=== PATIENT | male | born 1985 | race Caucasian/White ===

== ENCOUNTER 2016-03-06 21:11 | Inpatient (IN) | payer OTHER ==
[2016-03-06 21:48] LABS: BASOPHIL 0.2 % (0-2.0); EOSINOPHIL 0.3 % (0-4.5); MCH 28.7 pg (25.7-33.7); MCHC 33.2 g/dl (32.0-35.9); MEAN CELL VOLUME 86.3 fl (80-96); MEAN PLT VOLUME 8.9 fl (7.5-11.1); PLATELET COUNT 201 K/MM3 (134-434); RDW 14.4 % (11.9-15.9); WHITE BLOOD COUNT 7.1 K/mm3 (4.0-10.0)
[2016-03-06 22:17] LABS: ACTIVATED PTT 31.1 SECONDS (26.9-34.4); INR 1.18 (0.82-1.09)
[2016-03-06 22:18] LABS: ALCOHOL < 5.0 mg/dl (0-5)
[2016-03-06 22:24] LABS: ALBUMIN 4.7 g/dl (3.4-5.0); ANION GAP 7 (8-16); BILIRUBIN,TOTAL 2.1 mg/dL (0.2-1.0); CALCIUM 8.9 mg/dL (8.5-10.1); CO2 26 mmol/L (21-32); CREATININE 0.8 mg/dL (0.7-1.3); GLUCOSE,RANDOM 101 mg/dL (74-106); SGOT/AST 46 U/L (15-37); SGPT/ALT 68 U/L (12-78); TOT PROT 7.9 g/dl (6.4-8.2)
[2016-03-06 22:26] LABS: ALK PHOS 67 U/L (45-117); TROPONIN I < 0.02 ng/ml (0.00-0.05)
--- NOTE | 2016-03-06 22:37 | PDOC ---
History of Present Illness - General History Source: EMS, Family Exam Limitations: No Limitations - History of Present Illness Initial Comments: 03/06/16 22:45 The patient is a 30 year old male brought via EMS and presenting with his sister , with a significant past medical history of cardiomyopathy, who presents to the emergency department with altered mental status onset today. Arrived at ED at 9:06pm. The sister denies any drugs, alcohol or cigarette use. She denies any recent stress of history of altered mental status. She denies any history of seizures or asthma. On presentation the patient awake but unresponsive to physical or verbal stimuli. At 9:09pm the patient's vitals are as follows; 108/86 BP, 120 BPM, 100% on room air and 19 respiratory rate. Family history: CAD Allergies: None Past surgical history: None reported Social history: No alcohol, tobacco or drug use reported <Jamal Zapata - Last Filed: 03/07/16 01:31> - General History Source: EMS, Family Exam Limitations: No Limitations <Rey Lovelace - Last Filed: 03/11/16 07:49> - General Chief Complaint: Overdose Stated Complaint: UNRESPONSIVE Time Seen by Provider: 03/06/16 21:14 Past History <Jamal Zapata - Last Filed: 03/07/16 01:31> - Past Medical History Anemia: No Asthma: No Cancer: No Cardiac Disorders: Yes (CARDIOMYOPATHY) CVA: No COPD: No CHF: No Dementia: No Diabetes: No GI Disorders: No Disorders: No HTN: No Hypercholesterolemia: No Liver Disease: No Seizures: No Thyroid Disease: No - Surgical History Abdominal Surgery: No Appendectomy: No Cardiac Surgery: No Cholecystectomy: No Lung Surgery: No Neurologic Surgery: No Orthopedic Surgery: No - Psycho/Social/Smoking Cessation Hx Suicidal Ideation: No Smoking History: Never smoked Hx Alcohol Use: No Drug/Substance Use Hx: No Hx Substance Use Treatment: No <Rey Lovelace - Last Filed: 03/11/16 07:49> - Past Medical History Allergies/Adverse Reactions: Allergies Allergy/AdvReac Type Severity Reaction Status Date / Time ondansetron HCl [From Zofran] AdvReac Verified 11/21/13 00:17 Review of Systems - Review of Systems Able to Perform ROS?: Yes Comments:: 03/06/16 22:45 Unable to obtain ROS due to unresponsiveness. <Jamal Zapata - Last Filed: 03/07/16 01:31> *Physical Exam - Physical Exam Comments: 03/06/16 22:47 GENERAL: Awake, alert, and fully oriented, in no acute distress HEAD: No signs of trauma, normocephalic, atraumatic EYES: PERRLA, EOMI, sclera anicteric, conjunctiva clear ENT: Auricles normal inspection, hearing grossly normal, nares patent, oropharynx clear without exudates. Moist mucosa NECK: Normal ROM, supple, no lymphadenopathy, JVD, or masses LUNGS: No distress, speaks full sentences, clear to auscultation bilaterally HEART: Regular rate and rhythm, normal S1 and S2, no murmurs, rubs or gallops, peripheral pulses normal and equal bilaterally. ABDOMEN: Soft, nontender, normoactive bowel sounds. No guarding, no rebound. No masses EXTREMITIES: Normal inspection, Normal range of motion, no edema. No clubbing or cyanosis. NEUROLOGICAL: Cranial nerves II through XII grossly intact. Normal speech, normal gait, no focal sensorimotor deficits SKIN: Warm, Dry, normal turgor, no rashes or lesions noted. <Jamal Zapata - Last Filed: 03/07/16 01:31> Heart Score/ECG Review #1 ECG reviewed & interpreted by me at: 21:20 03/06/16 22:37 NSR 111, no std/eloisa, normal axis, normal intervals, QTC 454 msec <Rey Lovelace - Last Filed: 03/11/16 07:49> ED Treatment Course - LABORATORY CBC & Chemistry Diagram: 03/06/16 21:29 03/06/16 21:29 - ADDITIONAL ORDERS Additional order review: Laboratory Results 03/06/16 03/06/16 03/06/16 21:29 21:29 21:29 INR PTT (Actin FS) Sodium 145 Potassium 4.7 Chloride 112 H Carbon Dioxide 26 Anion Gap 7 L BUN 19 H D Creatinine 0.8 D Creat Clearance w eGFR > 60 Random Glucose 101 D Lactic Acid 2.039 H* Calcium 8.9 Total Bilirubin 2.1 H AST 46 H ALT 68 Alkaline Phosphatase 67 Creatine Kinase 108 Troponin I < 0.02 Total Protein 7.9 Albumin 4.7 Lipase 129 Salicylates < 4.0 Acetaminophen < 2.0 L Alcohol, Quantitative < 5.0 03/06/16 21:29 INR 1.18 H PTT (Actin FS) 31.1 Sodium Potassium Chloride Carbon Dioxide Anion Gap BUN Creatinine Creat Clearance w eGFR Random Glucose Lactic Acid Calcium Total Bilirubin AST ALT Alkaline Phosphatase Creatine Kinase Troponin I Total Protein Albumin Lipase Salicylates Acetaminophen Alcohol, Quantitative 03/06/16 21:29 RBC 5.37 D MCV 86.3 MCHC 33.2 RDW 14.4 MPV 8.9 Neutrophils % 86.0 H Lymphocytes % 8.0 D Monocytes % 5.5 D Eosinophils % 0.3 Basophils % 0.2 - RADIOLOGY Radiograph Interpretation: 03/06/16 23:[address] Reviewed by: Dr. Link Bennett Impression: There is equivocal minimal to mild bilaterally symmetric hypodensity within the mid and posterior thirds of the temporal lobes which is probably artifactual in nature and less likely secondary to acute ischemia. <Jamal Zapata - Last Filed: 03/07/16 01:31> - LABORATORY CBC & Chemistry Diagram: 03/06/16 21:29 03/06/16 21:29 - ADDITIONAL ORDERS Additional order review: Laboratory Results 03/06/16 03/06/16 03/06/16 21:29 21:29 21:29 INR 1.18 H PTT (Actin FS) 31.1 Sodium 145 Potassium 4.7 Chloride 112 H Carbon Dioxide 26 Anion Gap 7 L BUN 19 H D Creatinine 0.8 D Creat Clearance w eGFR > 60 Random Glucose 101 D Calcium 8.9 Total Bilirubin 2.1 H AST 46 H ALT 68 Alkaline Phosphatase 67 Creatine Kinase 108 Troponin I < 0.02 Total Protein 7.9 Albumin 4.7 Lipase 129 Alcohol, Quantitative < 5.0 03/06/16 21:29 RBC 5.37 D MCV 86.3 MCHC 33.2 RDW 14.4 MPV 8.9 Neutrophils % 86.0 H Lymphocytes % 8.0 D Monocytes % 5.5 D Eosinophils % 0.3 Basophils % 0.2 - RADIOLOGY Radiology Studies Ordered: Category Date Time Status HEAD CT WITHOUT CONTRAST [CT] Stat CT Scan 03/06/16 21:14 Taken CHEST X-RAY PORTABLE* [RAD] Stat Radiology 03/06/16 22:31 Ordered <Rey Lovelace - Last Filed: 03/11/16 07:49> Medical Decision Making - Medical Decision Making 03/07/16 01:31 Dr. Stanley was called regarding the patient at 12:20am. Dr. Sruthi Marmolejo covering. Dr. Marmolejo was called regarding the patient at 12:59am Dr. Marmolejo was consulted regarding the patient at 1:30am [phone] <Jamal Zapata - Last Filed: 03/07/16 01:31> - Medical Decision Making 03/06/16 22:31 A portion of this note was documented by scribe services under my direction. I have reviewed the details of the note, within reason, and agree with the documentation with the following case summary and management plan written by me. Patient treated in the ED. Nursing notes are reviewed and incorporated into the medical decision-making. Vital signs reviewed. Peripheral IV access obtained by the nurse, laboratory studies are drawn and sent, reviewed and interpreted by myself. 30-year-old male with history of cardiomyopathy currently on digoxin presents to the emergency department with reported unconsciousness. The patient family reports that he started complaining about some nausea and vomiting and diarrhea and some abdominal cramping and subsequently went unconscious and the EMS was activated. Upon arrival to the ED, the patient had normal vital signs and was protecting his airway and breathing without labor. The presentation seemed unusual given that the patient seemed to have inconsistent presentations for his unconsciousness. It appears that he would look away when I tended open his eyes. He would avoid movements where there was pain inducing. We had then attempted to place a Louise catheter with the patient immediately stopped us and told us that he would urinate on his own and had no complaints. When asked about what had occurred, the patient reports that his nausea, vomiting, diarrhea and is stated that he just woke up in the emergency department. He has no complaint at this time. I suspect that this is all likely psychogenic in origin. We'll however obtain a CAT scan the head, labs, EKG, chest x-ray, urinalysis, tox screen. We'll observe the patient in the emergency department. If workup is unremarkable, we' ll discharge patient home with PMD follow-up. 03/07/16 01:44 CBC, BMP 03/06/16 21:29 03/06/16 21:29 CMP Sodium 145 mmol/L (136-145) 03/06/16 21:29 Potassium 4.7 mmol/L (3.5-5.1) 03/06/16: Chloride 112 mmol/L (98-107) H 03/06/16 21: Carbon Dioxide 26 mmol/L (21-32) 03/06/16 21: Anion Gap 7 (8-16) L 03/06/16 21: BUN 19 mg/dL (7-18) H D 03/06/16: Creatinine 0.8 mg/dL (0.7-1.3) D 03/06/16 21: Creat Clearance w eGFR > 60 (>60) 03/06/16: Random Glucose 101 mg/dL (74-106) D 03/06/16: Lactic Acid 2.039 mmol/L (0.4-2.0) H* 03/06/16: Calcium 8.9 mg/dL (8.5-10.1) 03/06/16: Total Bilirubin 2.1 mg/dL (0.2-1.0) H 03/06/16 21: AST 46 U/L (15-37) H 03/06/16 21: ALT 68 U/L (12-78) 03/06/16: Alkaline Phosphatase 67 U/L (45-117) 03/06/16 21: Creatine Kinase 108 IU/L (39-308) 03/06/16: Troponin I < 0.02 ng/ml (0.00-0.05) 03/06/16: Total Protein 7.9 g/dl (6.4-8.2) 03/06/16 21: Albumin 4.7 g/dl (3.4-5.0) 03/06/16: Lipase 129 U/L (73-393) 03/06/16: Salicylate, Acetaminophen, and alcohol negative. Urine tox pending. Patient continues with vomiting. To the CAT scan the head demonstrates findings that could be artifact but could not exclusive rule out acute infarct. Given that the patient has history of cardiac disease, we'll need to potentially entertain this idea. However, the patient demonstrates no acute neurological deficits. He demonstrates cranial nerves 2 to 12 intact with full strength in the upper and lower extremities and normal sensation throughout. He has no cerebellar signs. Again, I suspect that the CAT scan findings may potentially be artifact given the circumstances that he presented. But given that he has these "unconscious" episode and this CT finding, will admit the patient for telemetry observation. Will place a consultation in for Dr. Ku and hold off on aspirin at this time. Case discussed with Dr. Marmolejo who accepts the patient to telemetry observation. Case discussed in detail with admitting physician including history, physical exam and ancillary studies. Admitting physician has assumed care for the patient, will follow all pending diagnostics and will complete the evaluation and treatment. <Rey Lovelace - Last Filed: 03/11/16 07:49> *DC/Admit/Observation/Transfer - Attestations Scribe Attestion: 03/06/16 22:47 Documentation prepared by Jamal Zapata, acting as medical billing service for Rey Lovelace MD. <Jamal Zapata - Last Filed: 03/07/16 01:31> - Discharge Dispostion Admit: Yes <Rey Lovelace - Last Filed: 03/11/16 07:49> Diagnosis at time of Disposition: Abnormal head CT - Referrals
[2016-03-06 22:40] LABS: SALICYLATE < 4.0 mg/dl (0.0-30.0)
[2016-03-06] MEDS ORDERED: METOCLOPRAMIDE HCL INJECTION 10 MG/2 ML VIAL IVPB ONE (23:57)
[2016-03-07] MEDS ORDERED: SODIUM CHLORIDE 500 ML IV STA (00:05)
[2016-03-07] MEDS ORDERED: METOCLOPRAMIDE HCL INJECTION 10 MG/2 ML VIAL ONE (00:41)
[2016-03-07 06:48] VITALS: BMI 17.6
[2016-03-07] MEDS: ASPIRIN 81 MG CHEWABLE TABLETS PO SCH (09:39)
[2016-03-07] MEDS: DIGOXIN 0.25 MG TABLET (FP) PO SCH (09:39)
--- NOTE | 2016-03-07 10:04 | HP ---
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 His mother witnessed it. denies chest pain, shortness of breath or palpitations Mother had diarrhea for 2 days prior to the patient being sick. He denies eating food from outside. History Source: Patient Limitations to Obtaining History: No Limitations - Past Medical History DRIER FEEDER: Yes: Other (myotonic dystrophy) Cardiovascular: Yes: Other (? history of cardiac disease) Rheumatology: Yes: Other (myotonic dystrophy) - Smoking History Smoking history: Never smoked Have you smoked in the past 12 months: No - Alcohol/Substance Use Hx Alcohol Use: No Home Medications - Allergies Allergies/Adverse Reactions: Allergies Allergy/AdvReac Type Severity Reaction Status Date / Time ondansetron HCl [From Zofran] AdvReac Verified 11/21/13 00:17 - Home Medications Home Medications: Ambulatory Orders Enalapril Maleate 0 mg PO DAILY 11/20/13 Review of Systems - Review of Systems Constitutional: denies: Chills, Fever, Lethargy, Loss of Appetite Cardiovascular: denies: Chest Pain, Palpitations Respiratory: denies: Cough Physical Examination Vital Signs: Vital Signs Temperature 98 F 03/07/16 08:00 Pulse Rate 84 03/07/16 09:39 Respiratory Rate 20 03/07/16 08:00 Blood Pressure 95/57 03/07/16 08:00 O2 Sat by Pulse Oximetry (%) 98 03/07/16 06:00 Constitutional: Yes: No Distress, Calm HENT: Yes: Other (oral mucosae dry) Cardiovascular: Yes: Regular Rate and Rhythm Respiratory: Yes: CTA Bilaterally Gastrointestinal: Yes: Normal Bowel Sounds, Soft. No: Distention, Tenderness Edema: No Psychiatric: Yes: Alert, Oriented Labs: Laboratory Results - last 24 hr 03/06/16 03/06/16 03/06/16 21:29 21:29 21:29 WBC 7.1 D RBC 5.37 D Hgb 15.4 D Hct 46.4 D MCV 86.3 MCHC 33.2 RDW 14.4 Plt Count 201 D MPV 8.9 Neutrophils % 86.0 H Lymphocytes % 8.0 D Monocytes % 5.5 D Eosinophils % 0.3 Basophils % 0.2 INR 1.18 H PTT (Actin FS) 31.1 Sodium 145 Potassium 4.7 Chloride 112 H Carbon Dioxide 26 Anion Gap 7 L BUN 19 H D Creatinine 0.8 D Creat Clearance w eGFR > 60 Random Glucose 101 D Lactic Acid Calcium 8.9 Total Bilirubin 2.1 H AST 46 H ALT 68 Alkaline Phosphatase 67 Ammonia Creatine Kinase 108 Troponin I < 0.02 Total Protein 7.9 Albumin 4.7 Lipase 129 Digoxin Salicylates Acetaminophen Alcohol, Quantitative 03/06/16 03/06/16 03/07/16 21:29 21:29 02:02 WBC RBC Hgb Hct MCV MCHC RDW Plt Count MPV Neutrophils % Lymphocytes % Monocytes % Eosinophils % Basophils % INR PTT (Actin FS) Sodium Potassium Chloride Carbon Dioxide Anion Gap BUN Creatinine Creat Clearance w eGFR Random Glucose Lactic Acid 2.039 H* Calcium Total Bilirubin AST ALT Alkaline Phosphatase Ammonia 20.78 Creatine Kinase Troponin I Total Protein Albumin Lipase Digoxin Salicylates < 4.0 Acetaminophen < 2.0 L Alcohol, Quantitative < 5.0 03/07/16 03/07/16 02:02 10:30 WBC RBC Hgb Hct MCV MCHC RDW Plt Count MPV Neutrophils % Lymphocytes % Monocytes % Eosinophils % Basophils % INR PTT (Actin FS) Sodium Potassium Chloride Carbon Dioxide Anion Gap BUN Creatinine Creat Clearance w eGFR Random Glucose Lactic Acid 1.018 Calcium Total Bilirubin AST ALT Alkaline Phosphatase Ammonia Creatine Kinase Troponin I Total Protein Albumin Lipase Digoxin 0.0606 L Salicylates Acetaminophen Alcohol, Quantitative Imaging - Results Chest X-ray: Image Reviewed (Clear) Cat Scan: Report Reviewed EKG: Image Reviewed (NSR) Problem List - Problems (1) Abnormal head CT Code(s): R93.0 - ABNORMAL FINDINGS ON DX IMAGING OF SKULL AND HEAD, NEC (2) Syncope and collapse Code(s): R55 - SYNCOPE AND COLLAPSE (3) Diarrhea Code(s): R19.7 - DIARRHEA, UNSPECIFIED (4) Gastroenteritis Code(s): K52.9 - NONINFECTIVE GASTROENTERITIS AND COLITIS, UNSPECIFIED (5) Dehydration Code(s): E86.0 - DEHYDRATION Assessment/Plan plan Spoke with patient's primary care physician--patient only was prescribed vitamin D Patient is not on digoxin I will check echocardiogram as well as abdominal sonogram as total bilirubin is elevated Most likely the patient was dehydrated due to viral syndrome and had syncopized IV fluids neurology evaluation with regards to abnormal CT had Spoke with the hearing screen coordinator, discontinue digoxin Physical therapy evaluation DVT prophylaxisLovenox
--- NOTE | 2016-03-07 11:35 | CON.CARD ---
Consult Consult Specialty:: Cardiology Referred by:: Dr. Leiva Reason for Consultation:: Syncope, reported history of cardiomyopathy - History of Present Illness Chief Complaint: Nausea, vomiting, diarrhea, syncope History of Present Illness: 30 year old man with a history of myotonic dystrophy, unclear cardiac history ( reported possible cardiomyopathy but unknown details, on digoxin for unknown reason) presented to ER with family for an episode of syncope that occurred after nausea, vomiting, diarrhea. Pt. states that he had had episodes of nausea , vomiting, and diarrhea, he states that he was sitting on the couch when he told his mother that he needed to go to the hospital for these symptoms, he remembers becoming dizzy with the room spinning and then fell to the floor. The next thing he was aware of he was in the hospital. ER documentation reviewed, pt had a non-focal neurologic exam with stable vital signs, sinus tachycardia, and he regained consciousness while in the ER. He was seen and examined today in nad. currently awake, alert, oriented. he states he is feeling better. he denies having any chest pain, sob, or palpitations. - History Source History Provided By: Patient, Medical Record Limitations to Obtaining History: No Limitations - Past Medical History Cardio/Vascular: Yes: Other (reported cardiomyopathy but unknown details) Musculoskeletal: Yes: Other (myotonic dystrophy) Rheumatology: Yes: Other (myotonic dystrophy) - Alcohol/Substance Use Hx Alcohol Use: No - Smoking History Smoking history: Never smoked Have you smoked in the past 12 months: No - Social History Usual Living Arrangement: With Parent ADL: Family Assistance History of Recent Travel: No Home Medications - Allergies Allergies/Adverse Reactions: Allergies Allergy/AdvReac Type Severity Reaction Status Date / Time ondansetron HCl [From Zofran] AdvReac Verified 11/21/13 00:17 - Home Medications Home Medications: Ambulatory Orders Enalapril Maleate 0 mg PO DAILY 11/20/13 Family Disease History - Family Disease History Family Disease History: Heart Disease: Mother Review of Systems - Review of Systems Constitutional: reports: Weakness. denies: No Symptoms, Chills, Diaphoresis, Fever, Lethargy, Loss of Appetite, Malaise, Night Sweats, Unintentional Wgt. Loss, Other Eyes: denies: No Symptoms, Blind Spots, Blurred Vision, Double Vision, Eye Pain , Floaters, Photophobia, Recent Change in Vision, Other HENT: denies: No Symptoms, Difficult Swallowing, Ear Discharge, Ear Pain, Epistaxis, Gingival Bleeding, Hearing Loss, Mouth Swelling, Nasal Congestion, Ocular Prosthesis, Throat Pain, Toothache, Ringing in Ears, Other Neck: denies: No Symptoms, Decreased ROM, Lumps, Pain on Movement, Stiffness, Swollen Glands, Tenderness, Other Cardiovascular: denies: No Symptoms, Chest Pain, Edema, Palpitations, Shortness of Breath, Other Respiratory: denies: No Symptoms, Cough, Exercise Intolerance, Hemoptysis, Orthopnea, PND, Snoring, SOB, SOB on Exertion, Wheezing, Other Gastrointestinal: reports: Diarrhea, Nausea, Vomiting. denies: No Symptoms, Abdominal Pain, Bloating, Constipation, Dysphagia, Indigestion, Melena, Rectal Bleeding, Vomiting Blood, Other Genitourinary: denies: No Symptoms, Burning, Discharge, Dysuria, Flank Pain, Frequency, Hematuria, Incontinence, Lesions, Menses, Pain, Testicular Mass, Testicular Pain, Testicular Swelling, Urgency, Vaginal Bleeding, Other Breasts: denies: No Symptoms Reported, See HPI, Breast Implants, Discharge from Nipple, Lumps, Pain, Skin Changes, Other Musculoskeletal: reports: Decreased ROM, Muscle Weakness. denies: No Symptoms, Back Pain, Crepitus, Extremity Pain, Joint Pain, Joint Swelling, Muscle Pain, Muscle Cramps, Other Integumentary: denies: No Symptoms, Blister, Bruising, Change in Color, Eczema, Erythema, Incision, Lesions, Lump, Pallor, Pruritis, Rash, Wound, Other Neurological: reports: Change in LOC, Dizziness, Pre-Existing Deficit, Syncope, Weakness. denies: No Symptoms, Change in Speech, Confusion, Headache, Incoordination, Numbness, Parasthesia, Seizure, Tremors, Unsteady Gait, Other Endocrine: denies: No Symptoms, Excessive Sweating, Flushing, Increased Hunger, Increased Thirst, Intolerance to Cold, Intolerance to Heat, Unexplained Weight Gain, Unexplained Weight Loss, Other Hematology/Lymphatic: denies: No Symptoms, Easily Bruised, Excessive Bleeding, Swollen Glands, Other Psychiatric: denies: No Symptoms, Altered Sleep Pattern, Anxiety, Depression, Hallucinations, Panic, Paranoia, Suicidal, Other Vital Signs: Vital Signs Temperature 98 F 03/07/16 08:00 Pulse Rate 84 03/07/16 09:39 Respiratory Rate 20 03/07/16 08:00 Blood Pressure 95/57 03/07/16 08:00 O2 Sat by Pulse Oximetry (%) 96 03/07/16 08:00 Constitutional: Yes: No Distress, Calm, Thin Eyes: Yes: Conjunctiva Clear, EOM Intact, PERRL HENT: Yes: Atraumatic, Normocephalic Neck: Yes: Supple, Trachea Midline Respiratory: Yes: Regular, CTA Bilaterally. No: Rales, Rhonchi, Wheezes Gastrointestinal: Yes: WNL, Normal Bowel Sounds, Soft. No: Distention, Tenderness Renal/: Yes: WNL Cardiovascular: Yes: Regular Rate and Rhythm. No: Bradycardia, Tachycardia, Pulse Irregular, Gallop, Rub, Varicosities JVD: No Carotid Bruit: No PMI: Non-Displaced Heart Sounds: Yes: S1, S2. No: Split S2, S3, S4, Clicks, Gallop, Rub, Bruit Murmur: No: Systolic Murmur, Diastolic Murmur Musculoskeletal: Yes: Joint Stiffness, Muscle Weakness Extremities: Yes: WNL Edema: No Peripheral Pulses WNL: Yes Peripheral Pulses: 2+ Left Doralis Pedis, 2+ Right Dorsalis Pedis Integumentary: Yes: WNL Neurological: Yes: Alert, Oriented Psychiatric: Yes: Alert, Oriented - Other Data Labs, Other Data: INR, PTT INR 1.18 (0.82-1.09) H 03/06/16 21:29 ekg-sinus tach 111bpm, no sig ST abnl Echo: Pending, Report Reviewed (recent outpatient echo normal as per PMD) Ejection Fraction %: LVEF > or = 40 % Imaging - Results Chest X-ray: Report Reviewed, Image Reviewed EKG: Report Reviewed, Image Reviewed Other: Report Reviewed, Image Reviewed (tele-nsr, no arrhythmias recorded) Problem List - Problems (1) Cardiomyopathy Code(s): I42.9 - CARDIOMYOPATHY, UNSPECIFIED (2) Diarrhea Code(s): R19.7 - DIARRHEA, UNSPECIFIED (3) Gastroenteritis Code(s): K52.9 - NONINFECTIVE GASTROENTERITIS AND COLITIS, UNSPECIFIED (4) Vomiting Code(s): R11.10 - VOMITING, UNSPECIFIED (5) Syncope and collapse Code(s): R55 - SYNCOPE AND COLLAPSE Assessment/Plan 30 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 Syncope-unclear etiology, likely vasovagal secondary to GI illness and dehydration -labs and sinus tach c/w intravascular depletion -hydrate as needed -recent outpatient echo reportedly normal -unclear details on pts history of a cardiomyopathy, pt states that his heart is normal strength but was weak as a child -repeat echo here to re-assess -need to clarify why pt is on digoxin, dig level today .06, not dig toxic -ekg showed only sinus tach and tele has shown nsr, no arrhythmias noted -on discharge would recc additional extended event monitor to further assess for arrhythmia if no source of syncope is discovered during admission -neurology evaluation pending -will review echo and follow
--- NOTE | 2016-03-07 12:04 | CON.NEURO ---
Consult Consult Specialty:: Farzana Referred by:: Mik Reason for Consultation:: Ab CT - History of Present Illness History of Present Illness: 30 years old woman with PMH Cardiomyopathy Patient was admitted with CP Patient had some dizziness and required CT HEAD No ataxi no CP - History Source History Provided By: Significant Other, Medical Record Limitations to Obtaining History: No Limitations - Past Medical History Cardio/Vascular: Yes: Other (cardiomyopathy) Rheumatology: Yes: Other (myotonic dystrophy) - Alcohol/Substance Use Hx Alcohol Use: No - Smoking History Smoking history: Never smoked Have you smoked in the past 12 months: No Home Medications - Allergies Allergies/Adverse Reactions: Allergies Allergy/AdvReac Type Severity Reaction Status Date / Time ondansetron HCl [From Zofran] AdvReac Verified 11/21/13 00:17 - Home Medications Home Medications: Ambulatory Orders Enalapril Maleate 0 mg PO DAILY 11/20/13 Family Disease History - Family Disease History Family History: Unable to Obtain Review of Systems - Review of Systems Constitutional: reports: No Symptoms Eyes: reports: No Symptoms Physical Exam-Neuro Vital Signs: Vital Signs Temperature 98 F 03/07/16 08:00 Pulse Rate 84 03/07/16 09:39 Respiratory Rate 20 03/07/16 08:00 Blood Pressure 95/57 03/07/16 08:00 O2 Sat by Pulse Oximetry (%) 96 03/07/16 08:00 Constitutional: Yes: Well Nourished Neck: Yes: WNL Labs: INR, PTT INR 1.18 (0.82-1.09) H 03/06/16 21:29 - Neuro Exam Level Of Consciousness: Yes: Oriented to Person, Oriented to Place, Oriented to Time Eyes: Yes: PERRLA Speech: WNL Dominant Hand: Right Cranial Nerves II-XII Intact: Yes Gag: Present DTR's: 1+ Left Bicep, 1+ Right Bicep, 1+ Left Brachioradialis, 1+ Right Brachioradialis Response to light touch: Normal Response to pain prick: Normal Response to temperature: Normal Motor Strength: 3/5: Left Arm, Right Arm, Left Leg, Right Leg Gait: Deferred Imaging - Results Cat Scan: Image Reviewed Problem List - Problems (1) Abnormal head CT Code(s): R93.0 - ABNORMAL FINDINGS ON DX IMAGING OF SKULL AND HEAD, NEC Assessment/Plan Blood work mRI brain with no Edd Work up based on MR results Many thanks for [facility] consult
[2016-03-07] MEDS: D5-1/2NS+10 MEQ KCL - 1,000 ML IV SCH (14:16)
--- NOTE | 2016-03-07 15:38 | EKG ---
Test Reason : Blood Pressure : / mmHG Vent. Rate : 111 BPM Atrial Rate : 111 BPM P-R Int : 170 ms QRS Dur : 092 ms QT Int : 334 ms P-R-T Axes : 076 083 056 degrees QTc Int : 454 ms POOR DATA QUALITY, INTERPRETATION MAY BE ADVERSELY AFFECTED SINUS TACHYCARDIA OTHERWISE NORMAL ECG WHEN COMPARED WITH ECG OF 20-NOV-2013 13:29, ST NO LONGER ELEVATED IN INFERIOR LEADS Confirmed by MOISE DILL, AYM ([id number]) on 03/07/2016 3:38:25 PM Referred By: Confirmed By:AMY PHIPPS MD
[2016-03-08 08:28] LABS: URINE APPEARANCE CLEAR; URINE BILIRUBIN NEGATIVE (NEGATIVE); URINE BLOOD NEGATIVE (NEGATIVE); URINE COLOR DKYELLOW; URINE GLUCOSE (UA) NEGATIVE (NEGATIVE); URINE KETONE NEGATIVE (NEGATIVE); URINE LEUK ESTERASE NEGATIVE (NEGATIVE); URINE NITRITE NEGATIVE (NEGATIVE); URINE PROTEIN NEGATIVE (NEGATIVE); URINE UROBILINOGEN 2.0 E.U/dl E.U./dl (0.2-1.0)
[2016-03-08 09:06] LABS: URINE MARIJUANA THC NEGATIVE ng/ml (CUTOFF=50)
--- NOTE | 2016-03-08 09:12 | PN ---
Progress Note, Physician Chief Complaint: feels well History of Present Illness: TELE: NSR Echo WNL - Current Medication List Current Medications: Active Medications Aspirin (Asa -) 81 mg PO DAILY [facility] Last Admin: 03/07/16 09:39 Dose: 81 mg Digoxin (Lanoxin -) 0.25 mg PO DAILY [facility] Last Admin: 03/07/16 09:39 Dose: 0.25 mg Enoxaparin Sodium (Lovenox -) 40 mg SQ DAILY [facility] Potassium Chloride/Dextrose/Sod Cl (D5-1/2ns+10 Meq Kcl -) 1,000 mls @ 60 mls/ hr IV ASDIR [facility] Last Admin: 03/07/16 14:16 Dose: 60 mls/hr - Objective Vital Signs: Vital Signs Temperature 98.2 F 03/08/16 08:00 Pulse Rate 66 03/08/16 08:00 Respiratory Rate 14 03/08/16 08:00 Blood Pressure 92/50 03/08/16 08:00 O2 Sat by Pulse Oximetry (%) 98 03/08/16 06:00 Constitutional: Yes: No Distress Cardiovascular: Yes: Regular Rate and Rhythm Respiratory: Yes: CTA Bilaterally Gastrointestinal: Yes: Soft Edema: No Neurological: Yes: Alert Labs: INR, PTT INR 1.18 (0.82-1.09) H 03/06/16 21:29 - ....Imaging EKG: Image Reviewed Assessment/Plan Assessment/Plan 30 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 Syncope-unclear etiology, likely vasovagal secondary to GI illness and dehydration -Echo w/ normal LV functio -Tele NSR -Neuro work up in progress
[2016-03-08] MEDS: ENOXAPARIN NA (PORCINE) 40 MG/0.4 ML DISP.SYRIN SQ SCH (09:29)
[2016-03-08] MEDS: ASPIRIN 81 MG CHEWABLE TABLETS PO SCH (09:29)
[2016-03-08] MEDS: DIGOXIN 0.25 MG TABLET (FP) PO SCH (10:32)
--- NOTE | 2016-03-08 10:53 | DS ---
Physical Examination Vital Signs: Vital Signs Temperature 98.2 F 03/08/16 08:00 Pulse Rate 66 03/08/16 08:00 Respiratory Rate 14 03/08/16 08:00 Blood Pressure 92/50 03/08/16 08:00 O2 Sat by Pulse Oximetry (%) 98 03/08/16 06:00 <Jhonatan Marmolejo - Last Filed: 03/08/16 10:55> Vital Signs: Vital Signs Temperature 98.2 F 03/08/16 08:00 Pulse Rate 66 03/08/16 08:00 Respiratory Rate 14 03/08/16 08:00 Blood Pressure 92/50 03/08/16 08:00 O2 Sat by Pulse Oximetry (%) 98 03/08/16 06:00 Findings/Remarks: Feels well. No complaints. Constitutional: Yes: No Distress, Calm Eyes: Yes: Conjunctiva Clear HENT: Yes: WNL Neck: Yes: Supple Cardiovascular: Yes: Regular Rate and Rhythm Respiratory: Yes: CTA Bilaterally Gastrointestinal: Yes: Soft Edema: No Neurological: Yes: Alert Psychiatric: Yes: Alert <Diamond Montero - Last Filed: 03/08/16 10:59> Discharge Summary Reason For Visit: ABNORMAL HEAD CT Current Active Problems Abnormal head CT (Acute) Dehydration (Acute) Myotonic dystrophy (Acute) Syncope and collapse (Acute) <Jhonatan Marmolejo - Last Filed: 03/08/16 10:55> Current Active Problems Abnormal head CT (Acute) Dehydration (Acute) Myotonic dystrophy (Acute) Syncope and collapse (Acute) Hospital Course: Admitted for syncope. Most likely vasovagal. Workup negative. Echocardiogram was normal. MRI of the brain revealed no acute pathology except nasopharyngeal polyp and deviated nasal septum. Patient is medically stabled for discharge. Patient is advised not to take Digoxin. No need for Aspirin either. Will also hold blood pressure medications as pressure is on the low side. Patient to follow with his PMD next week. Patient also advised to see an ENT for nasopharyngeal polyp and deviated septum as outpatient. Patient will discuss with his PMD. Will discharge home today. Patient in agreement. Discussed with nursing staff also. Documentation prepared by Diamond Montero, acting as a medical record consultant for Jhonatan Marmolejo MD. <Diamond Montero - Last Filed: 03/08/16 10:59> - Instructions Referrals: Shantanu Stanley MD [Primary Care Provider] -
--- NOTE | 2016-03-08 12:53 | PN ---
Progress Note (short form) - Note Progress Note: Cardiology Addendum Echo report addendum noted. On personal review of study, there is an echo shadow which appears to be associated w/ the LA free wall which is probably artifactual. 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 In light of syncope presentation, a cardiac MRI or CEDRIC can be done to clarify the finding. CEDRIC can be done Friday if he remains inpatient.
[2016-03-08] MEDS: D5-1/2NS+10 MEQ KCL - 1,000 ML IV SCH (13:00)
--- NOTE | 2016-03-08 15:06 | PN ---
Progress Note, Physician History of Present Illness: events noted Chart revwied seen on tele Alert awke Mild dysarthia No hedache No New neuro events - Current Medication List Current Medications: Active Medications Enoxaparin Sodium (Lovenox -) 40 mg SQ DAILY [facility] Last Admin: 03/08/16 09:29 Dose: 40 mg Potassium Chloride/Dextrose/Sod Cl (D5-1/2ns+10 Meq Kcl -) 1,000 mls @ 60 mls/ hr IV ASDIR [facility] Last Admin: 03/07/16 14:16 Dose: 60 mls/hr - Objective Vital Signs: Vital Signs Temperature 98.2 F 03/08/16 08:00 Pulse Rate 66 03/08/16 08:00 Respiratory Rate 14 03/08/16 08:00 Blood Pressure 92/50 03/08/16 08:00 O2 Sat by Pulse Oximetry (%) 96 03/08/16 09:00 Constitutional: Yes: Well Nourished Eyes: Yes: WNL Neurological: Yes: Alert, Oriented, Babinski negative ...Motor Strength: WNL Labs: INR, PTT INR 1.18 (0.82-1.09) H 03/06/16 21:29 Problem List - Problems (1) Abnormal head CT Code(s): R93.0 - ABNORMAL FINDINGS ON DX IMAGING OF SKULL AND HEAD, NEC Assessment/Plan MRI of the brain with no evidence of acute pathology Neurological he can go home
[2016-03-09] MEDS: ENOXAPARIN NA (PORCINE) 40 MG/0.4 ML DISP.SYRIN SQ SCH (09:57)
--- NOTE | 2016-03-09 10:10 | PN ---
Progress Note (short form) - Note Progress Note: pt seen/ examined. no complains discharge was held yesterday per cardiology recommendation - Dr. Sifuentes texted me . Vital Signs Temp 98.2 F 03/09/16 06:00 Pulse 78 03/09/16 06:00 Resp 20 03/09/16 06:00 BP 115/58 03/09/16 06:00 Pulse Ox 96 03/08/16 21:00 Intake & Output 03/08/16 03/08/16 03/09/16 11:59 23:59 11:59 Intake Total 360 200 Balance 360 200 Intake: IV 360 D5-1/2Ns+10 Meq KCl - 1, 360 000 ml @ 60 mls/hr IV ASDIR [facility] Rx#:[id number] Oral 200 Other: Voiding Method Toilet Toilet Toilet # Unmeasured Voids Void 2 3 Active Medications Enoxaparin Sodium (Lovenox -) 40 mg SQ DAILY [facility] Last Admin: 03/09/16 09:57 Dose: 40 mg Potassium Chloride/Dextrose/Sod Cl (D5-1/2ns+10 Meq Kcl -) 1,000 mls @ 60 mls/ hr IV ASDIR [facility] Last Admin: 03/08/16 13:00 Dose: Not Given CBC, BMP 03/06/16 21:29 03/06/16 21:29 Physical Exam. Constitutional: Yes: No Distress, comfortable Eyes: Yes: Conjunctiva Clear HEENT: Yes: WNL Neck: Yes: Supple/ no jvd Cardiovascular: Yes: Regular Rate and Rhythm Respiratory: Yes: clear Gastrointestinal: Yes: Soft/ non tender Edema: No Neurological: Yes: Alert Psychiatric: Yes: Alert a/p stable Abnormal echo ? Discussed with Dr. Addison today. Scheduled for CEDRIC on Discussed with pt - He agrees with plan. Problem List - Problems (1) Cardiomyopathy Code(s): I42.9 - CARDIOMYOPATHY, UNSPECIFIED (2) Diarrhea Code(s): R19.7 - DIARRHEA, UNSPECIFIED (3) Gastroenteritis Code(s): K52.9 - NONINFECTIVE GASTROENTERITIS AND COLITIS, UNSPECIFIED (4) Vomiting Code(s): R11.10 - VOMITING, UNSPECIFIED (5) Syncope and collapse Code(s): R55 - SYNCOPE AND COLLAPSE
--- NOTE | 2016-03-09 11:14 | PN ---
Progress Note, Physician History of Present Illness: seen and examined today in [facility]. no overnight events. no new complaints. - Current Medication List Current Medications: Active Medications Enoxaparin Sodium (Lovenox -) 40 mg SQ DAILY [facility] Last Admin: 03/09/16 09:57 Dose: 40 mg Potassium Chloride/Dextrose/Sod Cl (D5-1/2ns+10 Meq Kcl -) 1,000 mls @ 60 mls/ hr IV ASDIR [facility] Last Admin: 03/08/16 13:00 Dose: Not Given - Objective Vital Signs: Vital Signs Temperature 98.2 F 03/09/16 06:00 Pulse Rate 78 03/09/16 06:00 Respiratory Rate 20 03/09/16 06:00 Blood Pressure 115/58 03/09/16 06:00 O2 Sat by Pulse Oximetry (%) 96 03/08/16 21:00 Constitutional: Yes: No Distress, Calm, Thin Eyes: Yes: Conjunctiva Clear, EOM Intact, PERRL HENT: Yes: Atraumatic, Normocephalic Neck: Yes: Supple, Trachea Midline Cardiovascular: Yes: Regular Rate and Rhythm, S1, S2. No: Bradycardia, Tachycardia, Pulse Irregular, Bruit, JVD, Gallop, Murmur, Rub, S3, S4, Varicosities Respiratory: Yes: Regular, CTA Bilaterally. No: Rales, Rhonchi, Wheezes Gastrointestinal: Yes: WNL, Normal Bowel Sounds, Soft. No: Distention, Tenderness Musculoskeletal: Yes: Muscle Weakness Edema: No Peripheral Pulses WNL: Yes Peripheral Pulses: Left Doralis Pedis: 2+, Right Dorsalis Pedis: 2+ Integumentary: Yes: WNL Neurological: Yes: Alert, Oriented Psychiatric: Yes: Alert, Oriented Labs: INR, PTT INR 1.18 (0.82-1.09) H 03/06/16 21:29 - ....Imaging Chest X-ray: Report Reviewed, Image Reviewed EKG: Report Reviewed, Image Reviewed Other: Report Reviewed, Image Reviewed (tele-nsr, blocked apcs, pvcs) Problem List - Problems (1) Cardiomyopathy Code(s): I42.9 - CARDIOMYOPATHY, UNSPECIFIED (2) Diarrhea Code(s): R19.7 - DIARRHEA, UNSPECIFIED (3) Gastroenteritis Code(s): K52.9 - NONINFECTIVE GASTROENTERITIS AND COLITIS, UNSPECIFIED (4) Vomiting Code(s): R11.10 - VOMITING, UNSPECIFIED (5) Syncope and collapse Code(s): R55 - SYNCOPE AND COLLAPSE Assessment/Plan 30 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 Syncope-unclear etiology, likely vasovagal secondary to GI illness and dehydration -admission labs and sinus tach c/w intravascular depletion -s/p IVF hydration -no recurrence of symptoms -no arrythmias on telemetry -digoxin stopped as unclear why he was taking it (PMD reports no knowledge of him being on this medication or an indication) -echo showed overall normal structural heart, incidentally seen likely artifact LA free wall but cannot rule out a mass (even if a mass it would be unlikely to cause his presenting symptoms) -on discharge would recc additional extended event monitor to further assess for arrhythmia Echo -echodensity seen Left atrial free wall-likely artifact but cannot rule out a mass -plan for CEDRIC friday to further evaluate, depending on results may need outpatient cardiac MRI to further evaluate -npo after midnight friday night for CEDRIC friday
[2016-03-09] MEDS: D5-1/2NS+10 MEQ KCL - 1,000 ML IV SCH (19:03)
[2016-03-10] MEDS: ENOXAPARIN NA (PORCINE) 40 MG/0.4 ML DISP.SYRIN SQ SCH (10:26)
--- NOTE | 2016-03-10 11:03 | PN ---
Progress Note, Physician History of Present Illness: seen and examined today in [facility]. no overnight events. no new complaints. - Current Medication List Current Medications: Active Medications Enoxaparin Sodium (Lovenox -) 40 mg SQ DAILY [facility] Last Admin: 03/10/16 10:26 Dose: 40 mg Potassium Chloride/Dextrose/Sod Cl (D5-1/2ns+10 Meq Kcl -) 1,000 mls @ 60 mls/ hr IV ASDIR [facility] Last Admin: 03/09/16 19:03 Dose: Not Given - Objective Vital Signs: Vital Signs Temperature 97.5 F L 03/09/16 20:21 Pulse Rate 67 03/09/16 20:21 Respiratory Rate 18 03/09/16 20:21 Blood Pressure 105/59 03/09/16 20:21 O2 Sat by Pulse Oximetry (%) 100 03/09/16 21:00 Constitutional: Yes: No Distress, Calm, Thin Eyes: Yes: Conjunctiva Clear, EOM Intact, PERRL HENT: Yes: Atraumatic, Normocephalic Neck: Yes: Supple, Trachea Midline Cardiovascular: Yes: Regular Rate and Rhythm, S1, S2. No: Bradycardia, Tachycardia, Pulse Irregular, Bruit, JVD, Gallop, Murmur, Rub, S3, S4, Varicosities Respiratory: Yes: Regular, CTA Bilaterally. No: Rales, Rhonchi, Wheezes Gastrointestinal: Yes: WNL, Normal Bowel Sounds, Soft. No: Distention, Tenderness Musculoskeletal: Yes: Joint Stiffness, Muscle Weakness Edema: No Peripheral Pulses WNL: Yes Peripheral Pulses: Left Doralis Pedis: 2+, Right Dorsalis Pedis: 2+ Integumentary: Yes: WNL Neurological: Yes: Alert, Oriented Psychiatric: Yes: Alert, Oriented Labs: INR, PTT INR 1.18 (0.82-1.09) H 03/06/16 21:29 - ....Imaging Chest X-ray: Report Reviewed, Image Reviewed EKG: Report Reviewed, Image Reviewed Other: Report Reviewed, Image Reviewed (tele-sinus el, nsr, pvcs) Problem List - Problems (1) Cardiomyopathy Code(s): I42.9 - CARDIOMYOPATHY, UNSPECIFIED (2) Diarrhea Code(s): R19.7 - DIARRHEA, UNSPECIFIED (3) Gastroenteritis Code(s): K52.9 - NONINFECTIVE GASTROENTERITIS AND COLITIS, UNSPECIFIED (4) Vomiting Code(s): R11.10 - VOMITING, UNSPECIFIED (5) Syncope and collapse Code(s): R55 - SYNCOPE AND COLLAPSE Assessment/Plan 30 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 Syncope-unclear etiology, likely vasovagal secondary to GI illness and dehydration -likely intravascular depletion on admission improved -no recurrence of symptoms -no arrythmias on telemetry -digoxin stopped -echo showed overall normal structural heart, no cardiac source of syncope -on discharge would recc additional extended event monitor to further assess for arrhythmia Echo -echodensity seen Left atrial free wall-likely artifact but cannot rule out a mass -plan for CEDRIC tomorrow to further evaluate, depending on results may need outpatient cardiac MRI to further evaluate -npo after midnight tonight for CEDRIC tomorrow
--- NOTE | 2016-03-10 11:50 | PN ---
Progress Note (short form) - Note Progress Note: feels well. no complains. denies cp/sob/ abd pain. No diarrhea Vital Signs Temp 97.9 F 03/10/16 10:00 Pulse 66 03/10/16 10:00 Resp 20 03/10/16 10:00 BP 104/53 03/10/16 10:00 Pulse Ox 99 03/10/16 10:00 Intake & Output 03/09/16 03/09/16 03/10/16 11:59 23:59 11:59 Intake Total 400 100 100 Balance 400 100 100 Intake: Oral 400 100 100 Other: Voiding Method Toilet Toilet Toilet # Unmeasured Voids Void 3 1 0 Active Medications Enoxaparin Sodium (Lovenox -) 40 mg SQ DAILY [facility] Last Admin: 03/10/16 10:26 Dose: 40 mg Potassium Chloride/Dextrose/Sod Cl (D5-1/2ns+10 Meq Kcl -) 1,000 mls @ 60 mls/ hr IV ASDIR [facility] Last Admin: 03/09/16 19:03 Dose: Not Given CBC, BMP 03/06/16 21:29 03/06/16 21:29 Physical Exam. Constitutional: Yes: No Distress, comfortable Eyes: Yes: Conjunctiva Clear HEENT: Yes: WNL Neck: Yes: Supple/ no jvd Cardiovascular: Yes: Regular Rate and Rhythm Respiratory: Yes: clear Gastrointestinal: Yes: Soft/ non tender Edema: No Neurological: Yes: Alert Psychiatric: Yes: Alert a/p stable Scheduled for CEDRIC on friday/ continue present care Problem List - Problems (1) Cardiomyopathy Code(s): I42.9 - CARDIOMYOPATHY, UNSPECIFIED (3) Gastroenteritis Code(s): K52.9 - NONINFECTIVE GASTROENTERITIS AND COLITIS, UNSPECIFIED (4) Vomiting Code(s): R11.10 - VOMITING, UNSPECIFIED (5) Syncope and collapse Code(s): R55 - SYNCOPE AND COLLAPSE
--- NOTE | 2016-03-11 09:09 | PN ---
Progress Note (short form) - Note Progress Note: Subjective Patient seen and examined. Comfortable. Family at bedside. Patient seen with box brander- Dr. Addison today. Patient offered no complaints. Objective Last Vital Signs Temp Pulse Resp BP Pulse Ox 97 F L 69 18 101/52 99 03/11/16 05:46 03/11/16 05:46 03/11/16 05:46 03/11/16 05:46 03/10/16 21:00 Physical Exam Constitutional: Yes: No Distress, comfortable Eyes: Yes: Conjunctiva Clear HEENT: Yes: WNL Neck: Yes: Supple/ no jvd Cardiovascular: Yes: Regular Rate and Rhythm Respiratory: Yes: clear Gastrointestinal: Yes: Soft/ non tender Edema: No Neurological: Yes: Alert Psychiatric: Yes: Alert Labs CBCD WBC 7.1 K/mm3 (4.0-10.0) D 03/06/16 21:29 RBC 5.37 M/mm3 (4.00-5.60) D 03/06/16 21:29 Hgb 15.4 GM/dL (11.7-16.9) D 03/06/16 21:29 Hct 46.4 % (35.4-49) D 03/06/16 21:29 MCV 86.3 fl (80-96) 03/06/16 21:29 MCHC 33.2 g/dl (32.0-35.9) 03/06/16 21:29 RDW 14.4 % (11.9-15.9) 03/06/16 21:29 Plt Count 201 K/MM3 (134-434) D 03/06/16 21:29 MPV 8.9 fl (7.5-11.1) 03/06/16 21:29 CMP Sodium 145 mmol/L (136-145) 03/06/16 21:29 Potassium 4.7 mmol/L (3.5-5.1) 03/06/16 21:29 Chloride 112 mmol/L (98-107) H 03/06/16 21:29 Carbon Dioxide 26 mmol/L (21-32) 03/06/16 21:29 Anion Gap 7 (8-16) L 03/06/16 21:29 BUN 19 mg/dL (7-18) H D 03/06/16 21:29 Creatinine 0.8 mg/dL (0.7-1.3) D 03/06/16 21:29 Creat Clearance w eGFR > 60 (>60) 03/06/16 21: Calcium 8.9 mg/dL (8.5-10.1) 03/06/16 21: Total Bilirubin 2.1 mg/dL (0.2-1.0) H 03/06/16 21: AST 46 U/L (15-37) H 03/06/16 21: ALT 68 U/L (12-78) 03/06/16 21: Alkaline Phosphatase 67 U/L (45-117) 03/06/16 21: Total Protein 7.9 g/dl (6.4-8.2) 03/06/16 21: Albumin 4.7 g/dl (3.4-5.0) 03/06/16 21:29 Assessment and Plan Stable for CEDRIC Today. Discussed in detal with patients mother who is at bedside. Patient has hx of Myotonic dystrophy and also remote hx of cardiomyopathy. Recent Echo showed no evidence of cardiomyopathy. Patient will need to follow with cardiology as outpatient. He will also need to have EP studies done as outpatient. Medically cleared for the proposed procedure today. Further recommendations after the procedure if exam is benign will consider d/c later today. Documentation prepared by Vanessa Briceno, acting as a medical services assistant for Jhonatan Marmolejo MD.
[2016-03-11] MEDS ORDERED: MIDAZOLAM HCL 2 MG/2 ML SINGLE DOSE VIAL ONE ×2 (11:35→11:43)
[2016-03-11] MEDS ORDERED: LIDOCAINE VISCOUS 2% ORAL/TOP 20 ML UNIT-DOSE CUP MM ONE (12:16)
--- NOTE | 2016-03-11 12:50 | DS ---
Physical Examination Vital Signs: Vital Signs Temperature 97.8 F 03/11/16 12:34 Pulse Rate 82 03/11/16 12:34 Respiratory Rate 18 03/11/16 12:34 Blood Pressure 114/59 03/11/16 12:34 O2 Sat by Pulse Oximetry (%) 97 03/11/16 12:34 Findings/Remarks: see today note Discharge Summary Reason For Visit: ABNORMAL HEAD CT Current Active Problems Abnormal head CT (Acute) Dehydration (Acute) Myotonic dystrophy (Acute) Syncope and collapse (Acute) Hospital Course: see detailed d/c summary of 03/08/16 s/p CEDRIC today normal study Discussed with asp net c developer Dr. Addison Will discharge home today Plan as described before Condition: Stable - Instructions Referrals: Shantanu Stanley MD [Primary Care Provider] - Disposition: HOME
--- NOTE | 2016-03-11 13:27 | PN ---
Progress Note, Physician History of Present Illness: seen and examined today in nad. no overnight events. no new complaints. - Current Medication List Current Medications: Active Medications Potassium Chloride/Dextrose/Sod Cl (D5-1/2ns+10 Meq Kcl -) 1,000 mls @ 60 mls/ hr IV ASDIR NESS Last Admin: 03/09/16 19:03 Dose: Not Given - Objective Vital Signs: Vital Signs Temperature 97.8 F 03/11/16 12:34 Pulse Rate 74 03/11/16 13:04 Respiratory Rate 18 03/11/16 13:04 Blood Pressure 102/59 03/11/16 13:04 O2 Sat by Pulse Oximetry (%) 98 03/11/16 13:04 Constitutional: Yes: No Distress, Calm, Thin Eyes: Yes: WNL, Conjunctiva Clear, EOM Intact, PERRL HENT: Yes: WNL, Atraumatic, Normocephalic Neck: Yes: WNL, Supple, Trachea Midline Cardiovascular: Yes: WNL, Regular Rate and Rhythm, S1, S2. No: Bradycardia, Tachycardia, Pulse Irregular, Bruit, JVD, Gallop, Murmur, Rub, S3, S4, Varicosities Respiratory: Yes: WNL, Regular, CTA Bilaterally. No: Rales, Rhonchi, Wheezes Gastrointestinal: Yes: WNL, Normal Bowel Sounds, Soft. No: Distention, Tenderness Musculoskeletal: Yes: Muscle Weakness Edema: No Peripheral Pulses WNL: Yes Peripheral Pulses: Left Doralis Pedis: 2+, Right Dorsalis Pedis: 2+ Neurological: Yes: Alert, Oriented, Pre-Existing Deficit Psychiatric: Yes: Alert, Oriented Labs: INR, PTT INR 1.18 (0.82-1.09) H 03/06/16 21:29 - ....Imaging Chest X-ray: Report Reviewed, Image Reviewed EKG: Report Reviewed, Image Reviewed Other: Report Reviewed, Image Reviewed (tele-nsr, sinus bradycardia, pvcs) Problem List - Problems (1) Cardiomyopathy Code(s): I42.9 - CARDIOMYOPATHY, UNSPECIFIED (2) Diarrhea Code(s): R19.7 - DIARRHEA, UNSPECIFIED (3) Gastroenteritis Code(s): K52.9 - NONINFECTIVE GASTROENTERITIS AND COLITIS, UNSPECIFIED (4) Vomiting Code(s): R11.10 - VOMITING, UNSPECIFIED (5) Syncope and collapse Code(s): R55 - SYNCOPE AND COLLAPSE Assessment/Plan 30 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 Syncope-unclear etiology, likely vasovagal secondary to GI illness and dehydration -intravascular depletion on admission improved -no recurrence of symptoms -no arrythmias on telemetry -digoxin stopped, confirmed with pts mother that he was not taking digoxin as outpatient -echo showed overall normal structural heart, no cardiac source of syncope -on discharge would recc additional extended event monitor to further assess for arrhythmia Echo -echodensity seen Left atrial free wall on transthoracic echo -CEDRIC perfomed today, pt tolerated procedure well, there were no complications. FULL report to follow. There was no left atrial or left atrial appendage mass or thrombus. Overall normal structural heart. -d/w pts mother will consider a cardiac MRI as outpatient -no additional inpatient work up, pt may be discharged -NPO for 2 hours after procedure until approx 2pm then check gag reflex, if gag positive pt can resume diet Discussed pt in detail with pts mother and brother today. Pts mother has a NICM and ICD which she was told due to a viral myocarditis. He has a brother who has a cardiomyopathy and was told it was from myotonic dystrophy The pt himself reportedly had a cardiomyopathy as a child that has improved and he had arrhythmias as a child that required multiple shocks-unknown what type of arrhythmia. He has only been on enalapril as outpatient. Pt is acceptable for discharge home. Will plan for an extended event monitor as outpatient to further evaluate for arrhythmias, a cardiac MRI to evaluate further for any structural heart disease, and will plan for an EPS evaluation given his family history of sudden , arrhythmias, and cardiomyopathies.
[2016-03-11 14:44] VITALS: BP 99/54; PULSE 67; TEMP 98
== END 2016-03-11 15:47 | disposition home or self-care (01) | DRG 312 ==
LOC: JER 21:11 → JERBED 03-07 02:08 → J4W 03-07 03:45 → OBSVTOIN 03-10 12:00
PROVIDERS: ADMIT Internal Medicine; ATTEND Internal Medicine
PROC: B246ZZ4 Ultrasonography of Right and Left Heart, Transesophageal (ICD-10-PCS; principal; 2016-03-11 11:00)
DX: R55 Syncope and collapse (principal); I42.8 Other cardiomyopathies; G71.11 Myotonic muscular dystrophy; R93.0 Abnormal findings on diagnostic imaging of skull and head, not elsewhere classified; K52.9 Noninfective gastroenteritis and colitis, unspecified; E86.0 Dehydration; R11.2 Nausea with vomiting, unspecified
CPT/HCPCS: 36415; 70450-TC; 70551-TC; 71010-TC; 76705-TC; 80053; 80162; 80307; 81003; 82140; 82550; 83605; 83690; 84484; 85025; 85610; 85730; 87086; 87186; 93005; 93010; 93306-TC; 93312; 93325; 97116-GP; 97162-PG; 99282-25; G0378

== ENCOUNTER 2020-01-18 16:54 | Emergency (ER) | payer OTHER | END 2020-01-18 17:25 | disposition home or self-care (01) | LOC: JVIRT 16:54 | DX: Z11.59 Encounter for screening for other viral diseases (principal) | CPT/HCPCS: C9803; G2012-GT; U0003 ==